=== PATIENT | male | born 1980 | race Caucasian/White ===

== ENCOUNTER 2016-08-23 18:38 | Emergency (ER) | payer OTHER ==
[2016-08-23 19:33] LABS: BASOPHILS 0.9 % (0.0-2.0); HEMATOCRIT 39.8 % (42.0-54.0); HEMOGLOBIN 13.3 g/dL (13.5-17.5); IMMATURE GRANULOCYTES 0.3 % (0-5); LYMPHOCYTES 47.8 % (15-50); MCH 31.2 pg (26.0-34.0); MCHC 33.4 g/dL (31.0-37.0); MCV 93.4 fL (80.0-100.0); MEAN PLATELET VOLUME 10.5 fL (7.4-10.4); MONOCYTES 10.3 % (2-11); NEUTROPHILS 37.7 % (40-80); PLATELET COUNT 320 10x3/uL (130-400); RBC 4.26 10x6/uL (4.20-6.10); RDW 15.9 % (11.5-14.5); WBC 7.6 10x3/uL (4.8-10.8)
[2016-08-23 19:52] LABS: ALBUMIN 3.3 g/dL (3.4-5.0); ALKALINE PHOSPHATASE 307 U/L (46-116); ALT (SGPT) 693 U/L (10-68); BILIRUBIN - TOTAL 4.85 mg/dL (0.2-1.3); CALC OSMOLALITY 275 mosm/kg (275-300); CALCIUM 8.6 mg/dL (8.5-10.1); CHLORIDE - SERUM 101 mmol/L (98-107); CREATININE - SERUM 1.1 mg/dL (0.6-1.3); GLUCOSE 91 mg/dL (74-106); POTASSIUM - SERUM 4.1 mmol/L (3.5-5.1); PROTEIN - SERUM 7.8 g/dL (6.4-8.2); SODIUM 138 mmol/L (136-145); UREA NITROGEN 12 mg/dL (7-18); eGFR NON AFRICAN AMERICAN 80 mL/min (90-120)
[2016-08-23 20:22] LABS: AMYLASE - SERUM 30 U/L (25-115); LIPASE 103 U/L (73-393)
[2016-08-25 07:21] LABS: HEPATITIS C ANTIBODY >11.0 (0.0-0.9)
== END 2016-08-23 21:23 | disposition home or self-care (01) ==
LOC: D.ER 18:38
PROVIDERS: Emergency Medicine
DX: R17 Unspecified jaundice (principal); F17.200 Nicotine dependence, unspecified, uncomplicated

== ENCOUNTER 2017-05-20 23:32 | Emergency (ER) | payer OTHER | END 2017-05-21 00:53 | disposition home or self-care (01) | LOC: D.ER 23:32 | DX: S89.91XA Unspecified injury of right lower leg, initial encounter (principal); W18.2XXA Fall in (into) shower or empty bathtub, initial encounter; Y93.E1 Activity, personal bathing and showering; Y92.022 Bathroom in mobile home as the place of occurrence of the external cause; M25.561 Pain in right knee; B19.20 Unspecified viral hepatitis C without hepatic coma; F17.200 Nicotine dependence, unspecified, uncomplicated ==

== ENCOUNTER 2017-07-20 21:44 | Emergency (ER) | payer OTHER ==
[2017-07-21 00:43] LABS: BASOPHILS 0.4 % (0-2); EOSINOPHILS 2.8 % (0-7); HEMATOCRIT 35.5 % (42.0-54.0); IMMATURE GRANULOCYTES 0.3 % (0-5); LYMPHOCYTES 40.6 % (15-50); MCH 30.1 pg (26.0-34.0); MCHC 33.8 g/dL (31.0-37.0); MEAN PLATELET VOLUME 9.4 fL (7.4-10.4); NEUTROPHILS 48.9 % (40-80); PLATELET COUNT 331 10x3/uL (130-400); RBC 3.99 10x6/uL (4.20-6.10); RDW 13.1 % (11.5-14.5); WBC 6.9 10x3/uL (4.8-10.8)
== END 2017-07-21 01:18 | disposition home or self-care (01) ==
LOC: D.ER 21:44
PROVIDERS: Physician Assistant Medical
DX: M25.572 Pain in left ankle and joints of left foot (principal); B19.20 Unspecified viral hepatitis C without hepatic coma

== ENCOUNTER 2017-07-31 13:52 | Emergency (ER) | payer OTHER | END 2017-07-31 16:08 | disposition home or self-care (01) | LOC: D.ER 13:52 | DX: K04.7 Periapical abscess without sinus (principal); K08.89 Other specified disorders of teeth and supporting structures; F17.200 Nicotine dependence, unspecified, uncomplicated ==